=== PATIENT | female | born 1995 | race Two or more races ===

== ENCOUNTER 2021-02-27 17:00 | Outpatient (CLI) | payer OTHER | END 2021-02-28 13:47 | disposition home or self-care (01) | LOC: OBS/DEL 17:00 | PROVIDERS: ATTEND Specialist | DX: O26.843 Uterine size-date discrepancy, third trimester (principal); O42.013 Preterm premature rupture of membranes, onset of labor within 24 hours of rupture, third trimester; O41.8X30 Other specified disorders of amniotic fluid and membranes, third trimester, not applicable or unspecified; Z3A.34 34 weeks gestation of pregnancy ==

== ENCOUNTER 2021-04-04 05:32 | Inpatient (IN) | payer OTHER ==
[~2021-04-04] VITALS: Ht 170.2 cm; Wt 78.9 kg
[2021-04-04] MEDS ORDERED: IRON325 MG PO (06:32)
[2021-04-04] MEDS ORDERED: PRENATAL CAPLE1 EAC1 PO (06:32)
== END 2021-04-06 12:54 | disposition home or self-care (01) | DRG 807 ==
LOC: LDR 05:32 → OB/GYN 05:32
PROVIDERS: ADMIT Specialist; ATTEND Specialist
PROC: 10E0XZZ Delivery of Products of Conception, External Approach (ICD-10-PCS; principal; 2021-04-04)
PROC: 0W8NXZZ Division of Female Perineum, External Approach (ICD-10-PCS; 2021-04-04)
PROC: 4A1HXFZ Monitoring of Products of Conception, Cardiac Rhythm, External Approach (ICD-10-PCS; 2021-04-04)
DX: O80 Encounter for full-term uncomplicated delivery (principal); Z37.0 Single live birth; Z3A.39 39 weeks gestation of pregnancy